=== PATIENT | male | born 1980 | race Caucasian/White ===

== ENCOUNTER 2016-07-06 12:00 | Inpatient (IN) | payer OTHER ==
[~2016-07-06] VITALS: Ht 177.8 cm; Wt 110.0 kg
[~2016-07-06 12:00] MED LIST: BUSP10 PO; FOLI1 PO; LEXA10TA PO; PROT40TA PO; SERO100T PO; TAB-TAB PO; THIA100T PO
[2016-07-06 12:06] VITALS: BP 153/86; PULSE 108; RESP 20; TEMP 98.3; O2SAT 96
[2016-07-06] MEDS ORDERED: SODIUM CHLOR 0.9% 1000 ML INJ 1,000 ML IV SCH (12:17)
--- NOTE | 2016-07-06 12:21 | PD ---
HPI Chief Complaint: Alcohol/Drug Intoxication Time Seen by Provider: 12:13 Travel History International Travel<30 days: No Contact w/Intl Traveler<30days: No Traveled to known affect area: No History of Present Illness HPI 35-year-old male complains of abdominal pain. Patient has history of EtOH abuse. Patient states that he drank about a gallon of vodka this morning. Patient states that he has abdominal pain for the past 2 days. Patient states the pain is sharp stabbing pain started around epigastric area with radiation to the back. Patient states that he has intermittent nausea vomiting since yesterday. Patient denies any headache. Patient denies any chest pain or shortness of breath. Patient denies any dysuria or frequency. Patient denies any fever chills. Patient states that he has history of pancreatitis in the past. On a scale of 1-10 the pain is a 9. PFSH Past Medical History Depression: Yes Diminished Hearing: No Pancreatitis: Yes Past Surgical History Appendectomy: Yes Social History Alcohol Use: Yes (DAILY) Tobacco Use: No Substance Use: No (DENIES) Allergies-Medications (Allergen,Severity, Reaction): Coded Allergies: No Known Allergies (Unverified , 11/29/15) Reported Meds & Prescriptions Reported Meds & Active Scripts Active No Active Prescriptions or Reported Medications Review of Systems General / Constitutional: No: Fever Eyes: No: Visual changes HENT: No: Headaches Cardiovascular: No: Chest Pain or Discomfort Respiratory: No: Shortness of Breath Gastrointestinal: Positive: Nausea, Vomiting, Abdominal Pain Genitourinary: No: Dysuria Musculoskeletal: No: Pain Skin: No Rash Neurologic: No: Weakness Psychiatric: No: Depression Endocrine: No: Polydipsia Hematologic/Lymphatic: No: Easy Bruising Physical Exam Narrative GENERAL: Well-nourished, well-developed patient. SKIN: Focused skin assessment warm/dry. HEAD: Normocephalic. EYES: No scleral icterus. No injection or drainage. NECK: Supple, trachea midline. No JVD or lymphadenopathy. CARDIOVASCULAR: Regular rate and rhythm without murmurs, gallops, or rubs. RESPIRATORY: Breath sounds equal bilaterally. No accessory muscle use. GASTROINTESTINAL: Abdomen soft, nondistended. Moderate tenderness on palpation epigastric area. No rebound tenderness. No mass. MUSCULOSKELETAL: No cyanosis, or edema. BACK: Nontender without obvious deformity. No CVA tenderness. Neurologic exam normal. Data Data Last Documented VS Vital Signs Date Time Temp Pulse Resp B/P Pulse Ox O2 Delivery O2 Flow Rate FiO2 07/06/16 12:06 98.3 108 20 153/86 96 Orders Complete Blood Count With Diff (07/06/16 12:17) Comprehensive Metabolic Panel (07/06/16 12:17) Lipase (07/06/16 12:17) Prothrombin Time / Inr (Pt) (07/06/16 12:17) Act Partial Throm Time (Ptt) (07/06/16 12:17) Urinalysis - C+S If Indicated (07/06/16 12:17) Iv Access Insert/Monitor (07/06/16 12:17) Ecg Monitoring (07/06/16:) Oximetry (07/06/16 12:17) Morphine Inj (Morphine Inj) (07/06/16 12:30) Ondansetron Inj (Zofran Inj) (07/06/16 12:30) Pantoprazole Inj (Protonix Inj) (07/06/16 12:30) Sodium Chlor 0.9% 1000 Ml Inj (Ns 1000 M (07/06/16 12:17) Thiamine Inj (Thiamine Inj) (07/06/16 12:30) Alcohol (Ethanol) (07/06/16 12:19) Labs Laboratory Tests Test 07/06/16 12:30 White Blood Count 8.5 TH/MM3 Red Blood Count 5.87 MIL/MM3 Hemoglobin 16.8 GM/DL Hematocrit 48.3 % Mean Corpuscular Volume 82.3 FL Mean Corpuscular Hemoglobin 28.6 PG Mean Corpuscular Hemoglobin 34.7 % Concent Red Cell Distribution Width 15.1 % Platelet Count 261 TH/MM3 Mean Platelet Volume 7.7 FL Neutrophils (%) (Auto) 35.9 % Lymphocytes (%) (Auto) 57.4 % Monocytes (%) (Auto) 5.8 % Eosinophils (%) (Auto) 0.3 % Basophils (%) (Auto) 0.6 % Neutrophils # (Auto) 3.1 TH/MM3 Lymphocytes # (Auto) 4.9 TH/MM3 Monocytes # (Auto) 0.5 TH/MM3 Eosinophils # (Auto) 0.0 TH/MM3 Basophils # (Auto) 0.0 TH/MM3 CBC Comment AUTO DIFF Prothrombin Time 10.6 SEC Prothromb Time International 1.0 RATIO Ratio Activated Partial 25.6 SEC Thromboplast Time Urine Color YELLOW Urine Turbidity CLEAR Urine pH 5.5 Urine Specific [place] 1.013 Urine Protein NEG mg/dL Urine Glucose (UA) NEG mg/dL Urine Ketones TRACE mg/dL Urine Occult Blood NEG Urine Nitrite NEG Urine Bilirubin NEG Urine Urobilinogen LESS THAN 2.0 MG/DL Urine Leukocyte Esterase NEG Urine WBC 1 /hpf Microscopic Urinalysis Comment CULT NOT INDICATED Sodium Level 142 MEQ/L Potassium Level 3.9 MEQ/L Chloride Level 104 MEQ/L Carbon Dioxide Level 22.4 MEQ/L Anion Gap 16 MEQ/L Blood Urea Nitrogen 15 MG/DL Creatinine 1.10 MG/DL Estimat Glomerular Filtration 77 ML/MIN Rate Random Glucose 116 MG/DL Calcium Level 8.8 MG/DL Total Bilirubin 0.3 MG/DL Aspartate Amino Transf 84 U/L (AST/SGOT) Alanine Aminotransferase 114 U/L (ALT/SGPT) Alkaline Phosphatase 87 U/L Total Protein 7.8 GM/DL Albumin 4.1 GM/DL Lipase 440 U/L Ethyl Alcohol Level 397 MG/DL [facility] Medical Decision Making Medical Screen Exam Complete: Yes Emergency Medical Condition: Yes Medical Record Reviewed: Yes Interpretation(s) 1347 PM. CBC within normal limit. CMP within normal limit. Glucose 116. AST 84. ALT 114. Lipase 440. Alcohol 397. UA negative. Differential Diagnosis Differential diagnosis including gastritis, PUD, pancreatitis, cholecystitis, colitis, UTI, pyelonephritis. Narrative Course 35-year-old male with epigastric abdominal pain, nausea vomiting. History of EtOH abuse. Normal saline solution 1 25 cc an hour. Morphine 2 mg IV. Zofran 4 mg IV. Protonix 40 mg IV. Thiamine 100 mg IV. Diagnosis Primary Impression: Acute pancreatitis Qualified Code: K85.20 - Alcohol-induced acute pancreatitis without infection or necrosis Additional Impression: Alcohol intoxication Qualified Code: F10.120 - Alcohol intoxication, uncomplicated Admitting Information Admitting Physician Requests: Observation Scripts No Active Prescriptions or Reported Meds Jayy Lehman MD July 06, 2016 12:21
[2016-07-06] MEDS ORDERED: MORPHINE SULFATE 4 MG/ML INJ IV PUSH ONE (12:30)
[2016-07-06] MEDS ORDERED: THIAMINE INJ 100 MG in SODIUM CHLORIDE 0.9% INJ 100 ML IV ONE (12:30)
[2016-07-06] MEDS ORDERED: ONDANSETRON HCL 4 MG/2 ML VIAL IVP ONE (12:30)
[2016-07-06] MEDS ORDERED: PANTOPRAZOLE SODIUM 40 MG VIAL IVP ONE (12:30)
[2016-07-06 12:49] LABS: AUTOMATED NEUTROPHIL # 3.1 TH/MM3 (1.8-7.7); BASOPHIL % 0.6 % (0.0-2.0); EOSINOPHIL % 0.3 % (0.0-4.0); HEMATOCRIT 48.3 % (39.0-51.0); LYMPH % 57.4 % (9.0-44.0); LYMPHOCYTE # 4.9 TH/MM3 (1.0-4.8); MEAN CELL VOLUME 82.3 FL (80.0-100.0); MEAN CORPUSCULAR HEMOGLOBIN 28.6 PG (27.0-34.0); MEAN CORPUSCULAR HGB CONC 34.7 % (32.0-36.0); MONO % 5.8 % (0.0-8.0); NEUT % 35.9 % (16.0-70.0); PLATELET COUNT 261 TH/MM3 (150-450); RED BLOOD COUNT 5.87 MIL/MM3 (4.50-5.90); RED CELL DISTRIBUTION WIDTH 15.1 % (11.6-17.2); WHITE BLOOD COUNT 8.5 TH/MM3 (4.0-11.0)
[2016-07-06 12:57] LABS: HEMO FLAGS AUTO DIFF
[2016-07-06 13:01] LABS: BLOOD, URINE NEG (NEG); COMMENT (UR) CULT NOT INDICATED; CULTURE IF INDICATED CULT NOT INDICATED; GLUCOSE,URINE NEG (NEG); KETONE, URINE TRACE mg/dL (NEG); NITRITE,URINE NEG (NEG); PH, URINE 5.5 (5.0-8.5); URINE COLOR YELLOW (YELLW/STRAW)
[2016-07-06 13:04] LABS: ALT (GPT) 114 U/L (12-78); ANION GAP 16 MEQ/L (5-15); AST (GOT) 84 U/L (15-37); BICARBONATE 22.4 MEQ/L (21.0-32.0); BLOOD UREA NITROGEN 15 MG/DL (7-18); CHLORIDE 104 MEQ/L (98-107); GLOMERULAR FILTRATION RATE 77 ML/MIN (>89); POTASSIUM 3.9 MEQ/L (3.5-5.1); SODIUM (NA) 142 MEQ/L (136-145)
[2016-07-06 13:05] LABS: APTT (PATIENT) 25.6 SEC (24.3-30.1); PROTHROMBIN TIME - PATIENT 10.6 SEC (9.8-11.6)
[2016-07-06 13:06] LABS: ALKALINE PHOSPHATASE 87 U/L (45-117); TOTAL BILIRUBIN ADULT 0.3 MG/DL (0.2-1.0)
[2016-07-06 13:36] LABS: SCAN/DIFF AUTO DIFF CONFIRMED
[2016-07-06 14:11] VITALS: O2SAT 97
[2016-07-06 14:12] VITALS: BP 143/82; PULSE 106; RESP 15; O2SAT 97
--- NOTE | 2016-07-06 14:23 | HHI.HP ---
HPI Service Family Medicine Primary Care Physician No Primary Care Physician Admission Diagnosis acute pancreatitis. Alcohol intoxication. Diagnoses: International Travel<30 Days: No Contact w/Intl Traveler<30days: No Known Affected Area: No History of Present Illness This is a 35-year-old male with past medical history significant for alcohol abuse and pancreatitis. He had recently been sober for a few months when 2 weeks ago his girlfriend left him and he started to binge drink once more. He has been drinking about a gallon of vodka every day for the last 2 weeks. For the last 2 days his stomach has been hurting and he has been drinking to the point of throwing up in order to help himself feel better. His parents saw him shaking this morning and more worried about them and called the ambulance. Prior to getting on the ambulance he had 2 or 3 more shots of vodka as well as a Valium to help with this shaking. He is currently complaining of severe abdominal pain and cannot sit still in the bed. It feels like a sharp stabbing pain in the center of the stomach and like somebody is punching him in the back repetitively. Last time he vomited was this morning. Last episode of pancreatitis occurred about 6 months ago prior to his sobriety, he has been going to and had been sober for several months prior to this relapse. Review of Systems Constitutional: COMPLAINS OF: Fatigue, Fever, Chills, Dizziness, Change in appetite (decreased), DENIES: Weight gain, Weight loss Eyes: COMPLAINS OF: Blurred vision, DENIES: Vision loss, Double Vision Ears, nose, mouth, throat: COMPLAINS OF: Hoarseness, DENIES: Tinnitus, Throat pain Respiratory: COMPLAINS OF: Cough, DENIES: Shortness of breath Cardiovascular: COMPLAINS OF: Chest pain Gastrointestinal: COMPLAINS OF: Abdominal pain, Nausea, Vomiting Genitourinary: DENIES: Urinary frequency, Urinary incontinence, Dysuria Musculoskeletal: COMPLAINS OF: Muscle aches, Joint Swelling, Back pain Integumentary: DENIES: Rash Hematologic/lymphatic: DENIES: Bruising Neurologic: COMPLAINS OF: Headache, Poor Balance, DENIES: Abnormal gait, Localized weakness, Seizures Psychiatric: COMPLAINS OF: Anxiety, Depression Past Family Social History Past Medical History Pancreatitis Alcohol abuse Past Surgical History appendectomy Reported Medications Reported Meds & Active Scripts Active No Active Prescriptions or Reported Medications Allergies: Coded Allergies: No Known Allergies (Unverified , 11/29/15) Family History noncontributory, adopted Social History Live in [place] with his parents 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 SKIN: No rashes, ecchymoses or lesions. Cool and dry. HEAD: Atraumatic. Normocephalic. No temporal or scalp tenderness. EYES: Pupils equal round and reactive. Extraocular motions intact. No scleral icterus. No injection or drainage. ENT: Nose without bleeding, purulent drainage or septal hematoma. Throat without erythema, tonsillar hypertrophy or exudate. Uvula midline. Airway patent. NECK: Trachea midline. No JVD or lymphadenopathy. Supple, nontender, no meningeal signs. CARDIOVASCULAR: Regular rate and rhythm without murmurs, gallops, or rubs. RESPIRATORY: Clear to auscultation. Breath sounds equal bilaterally. No wheezes , rales, or rhonchi. GASTROINTESTINAL: Abdomen soft, moderate tenderness to palpation in the epigastric region, nondistended. No rebound tenderness. No hepato-splenomegaly , or palpable masses. No guarding. MUSCULOSKELETAL: Extremities without clubbing, cyanosis, or edema. No joint tenderness, effusion, or edema noted. No calf tenderness. Negative Homans sign bilaterally. NEUROLOGICAL: Awake and alert. Cranial nerves II through XII grossly intact. Motor and sensory grossly within normal limits. Full range of motion. Normal speech. Laboratory Laboratory Tests Test 07/06/16 12:30 White Blood Count 8.5 Red Blood Count 5.87 Hemoglobin 16.8 Hematocrit 48.3 Mean Corpuscular Volume 82.3 Mean Corpuscular Hemoglobin 28.6 Mean Corpuscular Hemoglobin 34.7 Concent Red Cell Distribution Width 15.1 Platelet Count 261 Mean Platelet Volume 7.7 Neutrophils (%) (Auto) 35.9 Lymphocytes (%) (Auto) 57.4 Monocytes (%) (Auto) 5.8 Eosinophils (%) (Auto) 0.3 Basophils (%) (Auto) 0.6 Neutrophils # (Auto) 3.1 Lymphocytes # (Auto) 4.9 Monocytes # (Auto) 0.5 Eosinophils # (Auto) 0.0 Basophils # (Auto) 0.0 CBC Comment AUTO DIFF Differential Comment AUTO DIFF CONFIRMED Prothrombin Time 10.6 Prothromb Time International 1.0 Ratio Activated Partial 25.6 Thromboplast Time Urine Color YELLOW Urine Turbidity CLEAR Urine pH 5.5 Urine Specific [place] 1.013 Urine Protein NEG Urine Glucose (UA) NEG Urine Ketones TRACE Urine Occult Blood NEG Urine Nitrite NEG Urine Bilirubin NEG Urine Urobilinogen LESS THAN 2.0 Urine Leukocyte Esterase NEG Urine WBC 1 Microscopic Urinalysis Comment CULT NOT INDICATED Sodium Level 142 Potassium Level 3.9 Chloride Level 104 Carbon Dioxide Level 22.4 Anion Gap 16 Blood Urea Nitrogen 15 Creatinine 1.10 Estimat Glomerular Filtration 77 Rate Random Glucose 116 Calcium Level 8.8 Total Bilirubin 0.3 Aspartate Amino Transf 84 (AST/SGOT) Alanine Aminotransferase 114 (ALT/SGPT) Alkaline Phosphatase 87 Total Protein 7.8 Albumin 4.1 Lipase 440 Ethyl Alcohol Level 397 Result Diagram: 07/06/16 1230 07/06/16 1230 Imaging Last Impressions Abdomen X-Ray 07/06/16 0000 Signed Impressions: Service Date/Time: , July 06, 2016 15:02 - CONCLUSION: 1. No free air identified. Benign-appearing KUB. Sky Carlson MD Assessment and Plan Assessment and Plan This a 35-year-old male with past medical history significant for pancreatitis and alcohol abuse, being admitted for alcohol withdrawal and pancreatitis. Code Status Full code Discussed Condition With wdw: Dr. Torres Problem List: (1) Alcohol withdrawal syndrome Status: Acute Plan: Patient reports relapse of his alcoholism. He has been drinking for the last 2 weeks gallon a day of vodka. Has been having worsening abdominal pain during this last 2 days which is greatly decreased his alcohol intake. He reports that he has had delirium tremens in the past and he is worried about going into that once more. * Admitted * CIWA protocol * Rally pack IV * IV fluids at 125 MLS per hour * CBC, BMP ordered for the a.m. (2) Acute pancreatitis Status: Acute Plan: Patient is having severe abdominal pain. Lipase is elevated at 440. History of pancreatitis. Has had a relapse of his alcohol abuse, and cause of abdominal pain believed to be due to pancreatitis. * Nothing by mouth * Ultrasound of the progress ordered: Results pending * Zofran 4 mg IV every 6 hours when necessary nausea or vomiting * Protonix 40 mg IV daily * Dilaudid 1 mg IV every 3 hours * Lipase ordered: Results pending (3) Nutrition, metabolism, and development symptoms Status: Acute Plan: Nothing by mouth IV fluids maintenance Vitals every 4 hours Neuro checks every 4 Bed rest with bathroom privileges Seizure precautions DVT prophylaxis with heparin and SCDs Monitor electrolytes replace accordingly CODE STATUS: Full code Disposition: Pending improvement of pancreatitis and completion of alcohol withdrawal Physician Certification 2 Midnight Certification Type: Admission for Inpatient Services Order for Inpatient Services The services are ordered in accordance with Medicare regulations or non- Medicare payer requirements, as applicable. In the case of services not specified as inpatient-only, they are appropriately provided as inpatient services in accordance with the 2-midnight benchmark. Estimated LOS (days): 2 days is the estimated time the patient will need to remain in the hospital, assuming treatment plan goals are met and no additional complications. Post-Hospital Plan: Home Problem Qualifiers (1) Acute pancreatitis: Qualified Code: K85.20 - Alcohol-induced acute pancreatitis without infection or necrosis Sam Coates MD R2 July 06, 2016 14:23
[2016-07-06] MEDS ORDERED: LORazepam 2 MG/ML VIAL IV PUSH PRN ×2 (14:30)
[2016-07-06] MEDS ORDERED: HALOPERIDOL LACTATE 5 MG/ML AMP IM PRN (14:30)
[2016-07-06] MEDS ORDERED: FLUMAZENIL 0.5 MG/5 ML VIAL IV PUSH PRN (14:30)
[2016-07-06] MEDS ORDERED: cloNIDine HCL 0.1 MG TAB PO PRN (14:30)
--- NOTE | 2016-07-06 15:14 | RADRPT ---
EXAM DATE/TIME: 07/06/2016 15:02 [facility] COMPARISON: No previous studies available for comparison. INDICATIONS : Abdominal pain for 2 days; nausea and vomiting. MEDICAL HISTORY : Pancreatitis. SURGICAL HISTORY : Appendectomy. ENCOUNTER: Initial ACUITY: 2 days PAIN SCORE: 9/10 LOCATION: Epigastric. FINDINGS: Supine and upright views of the abdomen were performed. The abdominal bowel gas pattern is normal. No air fluid levels are seen. No abnormal masses, calcifications, or organomegaly is seen. The visu alized lower lungs are clear. No evidence of free intraperitoneal gas. The osseous structures are u nremarkable. CONCLUSION: 1. No free air identified. Benign-appearing KUB. Sky Carlson MD on July 06, 2016 at 15:11 Board Certified Radiologist. This report was verified electronically.
[2016-07-06] MEDS: HEPARIN SODIUM - SQ 10,000 UNITS/ML VIAL SQ SCH ×2 (15:21→23:18)
[2016-07-06] MEDS: MULTIVITAMIN INJ 10 ML, FOLIC ACID INJ 1 MG in SODIUM CHLORID 0.9% 500 ML INJ 500 ML IV SCH (15:46)
[2016-07-06] MEDS: SODIUM CHLOR 0.9% 1000 ML INJ 1,000 ML IV SCH ×2 (15:46→23:00)
[2016-07-06] MEDS: LORazepam 2 MG/ML VIAL IV PUSH PRN ×2 (15:47→20:03)
[2016-07-06] MEDS: HYDROmorphone HCL PF 1 MG/ML VIAL IV PRN ×2 (15:47→18:52)
[2016-07-06] MEDS: ONDANSETRON HCL 4 MG/2 ML VIAL IV PRN ×2 (17:31→19:30)
[2016-07-06 17:54] VITALS: BP 151/90; PULSE 99; RESP 20; TEMP 98.2; O2SAT 96
[2016-07-06 19:46] VITALS: BP 145/84; PULSE 104; RESP 20; TEMP 98; O2SAT 94
[2016-07-06] MEDS: SODIUM CHLORIDE 0.9% FLUSH 10 ML FLUSH IV FLUSH SCH (19:49)
[2016-07-06 20:00] VITALS: O2SAT 94
--- NOTE | 2016-07-06 20:04 | RADRPT ---
EXAM DATE/TIME: 07/06/2016 18:44 [facility] COMPARISON: No previous studies available for comparison. INDICATIONS : Pancreatitis. MEDICAL HISTORY : Pancreatitis. ETOH abuse. Depression. Anxiety. Substance use. Nausea. Vomiting. SURGICAL HISTORY : Appendectomy. Left ACL repair. ENCOUNTER: Initial ACUITY: 1 day PAIN SCORE: 8/10 LOCATION: Right upper quadrant MEASUREMENTS: LIVER: 16.9 cm length COMMON DUCT: Non-visualized RIGHT KIDNEY: 12.0 x 5.6 x 5.3 cm FINDINGS: LIVER: The liver demonstrates increased echogenicity without focal lesion or ductal dilatation. COMMON DUCT: The common bile duct is not seen. GALLBLADDER: Contains no stones, demonstrates no wall thickening or pericholecystic fluid. PANCREAS: The pancreas is somewhat ill-defined. CONCLUSION: 1. Fat infiltration of the liver. 2. The pancreas there is ill-defined. This can be seen with pancreatitis although is nonspecific. Pasha Daniel MD on July 06, 2016 at 19:54 Board Certified Radiologist. This report was verified electronically.
[2016-07-07] VITALS (7 sets, daily range): BP systolic 133–162; BP diastolic 79–93; PULSE 90–104; RESP 18–21; TEMP 97.7–98.7; O2SAT 95–98
[2016-07-07] MEDS: HYDROmorphone HCL PF 1 MG/ML VIAL IV PRN ×5 (00:03→20:20)
[2016-07-07] MEDS: SODIUM CHLORIDE 0.9% FLUSH 10 ML FLUSH IV FLUSH PRN (00:03)
[2016-07-07] MEDS: ONDANSETRON HCL 4 MG/2 ML VIAL IV PRN (01:22)
[2016-07-07] MEDS: LORazepam 2 MG/ML VIAL IV PUSH PRN ×5 (01:23→22:10)
[2016-07-07] MEDS: SODIUM CHLOR 0.9% 1000 ML INJ 1,000 ML IV SCH ×4 (06:28→22:51)
[2016-07-07 07:54] LABS: ALKALINE PHOSPHATASE 73 U/L (45-117); TOTAL BILIRUBIN ADULT 0.7 MG/DL (0.2-1.0)
[2016-07-07 08:03] LABS: ALT (GPT) 94 U/L (12-78); ANION GAP 11 MEQ/L (5-15); AST (GOT) 94 U/L (15-37); BICARBONATE 22.9 MEQ/L (21.0-32.0); BLOOD UREA NITROGEN 11 MG/DL (7-18); CHLORIDE 105 MEQ/L (98-107); GLOMERULAR FILTRATION RATE 87 ML/MIN (>89); MAGNESIUM 1.7 MG/DL (1.5-2.5); SODIUM (NA) 139 MEQ/L (136-145)
[2016-07-07 08:40] LABS: POTASSIUM 4.6 MEQ/L (3.5-5.1)
[2016-07-07] MEDS: SODIUM CHLORIDE 0.9% FLUSH 10 ML FLUSH IV FLUSH SCH ×2 (09:08→20:20)
[2016-07-07] MEDS: HEPARIN SODIUM - SQ 10,000 UNITS/ML VIAL SQ SCH ×2 (09:09→16:48)
[2016-07-07] MEDS: PANTOPRAZOLE SODIUM 40 MG VIAL IV PUSH SCH (09:09)
[2016-07-07] MEDS: chlordiazePOXIDE 25 MG CAP PO SCH ×2 (09:52→12:36)
[2016-07-07] MEDS: LORazepam 1 MG TAB PO PRN (09:52)
--- NOTE | 2016-07-07 10:10 | HHI.HP ---
[facility] Service Family Medicine Primary Care Physician No Primary Care Physician Admission Diagnosis acute pancreatitis. Alcohol intoxication. Diagnoses: (1) Alcohol withdrawal syndrome Diagnosis: Principal (2) Acute pancreatitis Diagnosis: Principal (3) Nutrition, metabolism, and development symptoms Diagnosis: Principal International Travel<30 Days: No Contact w/Intl Traveler<30days: No Known Affected Area: No History of Present Illness Mr Pickens is a 35-year-old male with past medical history significant for alcohol abuse and pancreatitis. He had recently been sober for a few months when 2 weeks ago his girlfriend left him and he started to binge drink once more. He has been drinking about a gallon of vodka every day for the last 2 weeks. For the last 2 days before admission his stomach has been hurting and he has been drinking to the point of throwing up in order to help himself feel better. His parents saw him shaking and were worried about him and called the ambulance. Prior to getting on the ambulance he had 2 or 3 more shots of vodka as well as a Valium to help with this shaking. He was currently complaining of severe abdominal pain and could not sit still in the bed. He felt like a sharp stabbing pain in the center of the stomach and like somebody was punching him in the back repetitively. Last time he vomited was yesterday morning. Last episode of pancreatitis occurred about 6 months ago prior to his sobriety, he has been going to and had been sober for several months prior to this relapse. This am he reports having visual hallucinations where he is seeing "shadow people"among other things. He is tremulous. He has a history of seizures with alcohol withdrawal and states it often takes him days to improve. After leaving the hospital he wants to go to a "sober house" and quit drinking. His abdominal pain is improved though still present. Review of Systems Other Constitutional: COMPLAINS OF: Fatigue, Fever, Chills, Dizziness, Change in appetite (decreased), DENIES: Weight gain, Weight loss Eyes: COMPLAINS OF: Blurred vision, DENIES: Vision loss, Double Vision Ears, nose, mouth, throat: COMPLAINS OF: Hoarseness, DENIES: Tinnitus, Throat pain Respiratory: COMPLAINS OF: Cough, DENIES: Shortness of breath Cardiovascular: COMPLAINS OF: Chest pain Gastrointestinal: COMPLAINS OF: Abdominal pain, Nausea, Vomiting Genitourinary: DENIES: Urinary frequency, Urinary incontinence, Dysuria Musculoskeletal: COMPLAINS OF: Muscle aches, Joint Swelling, Back pain Integumentary: DENIES: Rash Hematologic/lymphatic: DENIES: Bruising Neurologic: COMPLAINS OF: Headache, Poor Balance, DENIES: Abnormal gait, Localized weakness, Seizures Psychiatric: COMPLAINS OF: Anxiety, Depression Past Family Social History Past Medical History Pancreatitis Alcohol abuse Past Surgical History appendectomy Allergies: Coded Allergies: No Known Allergies (Unverified , 11/29/15) Family History noncontributory, adopted Social History Lives in [place] with his parents Owns three companies Has been going to AA Smoke 3 cigarretes in a week period Drinks a gallon of vodka a day Smokes marijuana Physical Exam Vital Signs Vital Signs Date Time Temp Pulse Resp B/P Pulse Ox O2 Delivery O2 Flow Rate FiO2 07/07/16 07:47 96 Nasal Cannula 2.00 07/07/16 07:44 98.7 104 18 147/89 96 07/07/16 07:08 18 07/07/16 00:00 98.0 104 20 133/79 96 07/06/16 20:00 94 Nasal Cannula 2.00 07/06/16 19:46 98.0 104 20 145/84 94 07/06/16 17:54 98.2 99 20 151/90 96 07/06/16 14:12 106 15 143/82 97 Room Air 07/06/16 14:11 97 Room Air 07/06/16 12:06 98.3 108 20 153/86 96 Physical Exam GENERAL: This is a well-nourished, well-developed patient, discussing his visual hallucinations with some hand trembling this am SKIN: No rashes, ecchymoses or lesions. Cool and dry. HEAD: Atraumatic. Normocephalic. EYES: Pupils equal round and reactive. Extraocular motions intact. No scleral icterus. No injection or drainage. ENT: Nose without bleeding, purulent drainage or septal hematoma. Uvula midline. Airway patent. NECK: Trachea midline. No JVD or lymphadenopathy. Supple, nontender, no meningeal signs. CARDIOVASCULAR: Regular rate and rhythm without murmurs, gallops, or rubs. RESPIRATORY: Clear to auscultation. Breath sounds equal bilaterally. No wheezes , rales, or rhonchi. GASTROINTESTINAL: Abdomen soft, moderate tenderness to palpation in the epigastric region, nondistended. No rebound tenderness. No hepato-splenomegaly , or palpable masses. No guarding. MUSCULOSKELETAL: Extremities without clubbing, cyanosis, or edema. No joint tenderness, effusion, or edema noted. No calf tenderness. Negative Homans sign bilaterally. NEUROLOGICAL: Awake and alert. Cranial nerves II through XII grossly intact. Motor and sensory grossly within normal limits. Full range of motion. Normal speech. Laboratory Laboratory Tests Test 07/06/16 07/07/16 12:30 06:30 White Blood Count 8.5 Red Blood Count 5.87 Hemoglobin 16.8 Hematocrit 48.3 Mean Corpuscular Volume 82.3 Mean Corpuscular Hemoglobin 28.6 Mean Corpuscular Hemoglobin 34.7 Concent Red Cell Distribution Width 15.1 Platelet Count 261 Mean Platelet Volume 7.7 Neutrophils (%) (Auto) 35.9 Lymphocytes (%) (Auto) 57.4 Monocytes (%) (Auto) 5.8 Eosinophils (%) (Auto) 0.3 Basophils (%) (Auto) 0.6 Neutrophils # (Auto) 3.1 Lymphocytes # (Auto) 4.9 Monocytes # (Auto) 0.5 Eosinophils # (Auto) 0.0 Basophils # (Auto) 0.0 CBC Comment AUTO DIFF Differential Comment AUTO DIFF CONFIRMED Prothrombin Time 10.6 Prothromb Time International 1.0 Ratio Activated Partial 25.6 Thromboplast Time Urine Color YELLOW Urine Turbidity CLEAR Urine pH 5.5 Urine Specific [place] 1.013 Urine Protein NEG Urine Glucose (UA) NEG Urine Ketones TRACE Urine Occult Blood NEG Urine Nitrite NEG Urine Bilirubin NEG Urine Urobilinogen LESS THAN 2.0 Urine Leukocyte Esterase NEG Urine WBC 1 Microscopic Urinalysis Comment CULT NOT INDICATED Sodium Level 142 139 Potassium Level 3.9 4.6 Chloride Level 104 105 Carbon Dioxide Level 22.4 22.9 Anion Gap 16 11 Blood Urea Nitrogen 15 11 Creatinine 1.10 0.99 Estimat Glomerular Filtration 77 87 Rate Random Glucose 116 78 Calcium Level 8.8 8.3 Total Bilirubin 0.3 0.7 Aspartate Amino Transf 84 94 (AST/SGOT) Alanine Aminotransferase 114 94 (ALT/SGPT) Alkaline Phosphatase 87 73 Total Protein 7.8 7.0 Albumin 4.1 3.5 Lipase 440 252 Ethyl Alcohol Level 397 Phosphorus Level 2.5 Magnesium Level 1.7 Result Diagram: 07/06/16 1230 07/07/16 0630 Imaging Last Impressions Abdomen X-Ray 07/06/16 0000 Signed Impressions: Service Date/Time: July 15:02 - CONCLUSION: 1. No free air identified. Benign-appearing KUB. Sky Carlson MD Assessment and Plan Assessment and Plan This a 35-year-old male with past medical history significant for pancreatitis and alcohol abuse, being admitted for alcohol withdrawal and pancreatitis. He has serious withdrawal sxs so he will need to stay in the hospital probably for days Problem List: (1) Alcohol withdrawal syndrome Status: Acute Plan: Patient reports relapse of his alcoholism. He has been drinking for the last 2 weeks gallon a day of vodka. Has been having worsening abdominal pain during this last 2 days which is greatly decreased his alcohol intake. He reports that he has had delirium tremens in the past and he is going into that once more. * Admitted * CIWA protocol * librium taper. with his size plus the gallon a day, he will start on 50 mg TID of librium * Rally pack IV * IV fluids at 125 MLS per hour, will increase with pancreatitis * CBC, BMP ordered for the a.m. (2) Acute pancreatitis Status: Acute Plan: Patient was having severe abdominal pain. Lipase was elevated at 440. History of pancreatitis. Has had a relapse of his alcohol abuse, and cause of abdominal pain believed to be due to pancreatitis. * Nothing by mouth initially, now can try clear liquids as he is improving * Ultrasound of the pancreas ordered: Results pending * Zofran 4 mg IV every 6 hours when necessary nausea or vomiting * Protonix 40 mg IV daily * Dilaudid 1 mg IV every 3 hours * Lipase ordered: Results pending (3) Nutrition, metabolism, and development symptoms Status: Acute Plan: Clear liquids, consider advancing if he does well with his pain IV fluids for pancreatitis Vitals every 4 hours Neuro checks every 4 Bed rest with bathroom privileges Seizure precautions DVT prophylaxis with heparin and SCDs Monitor electrolytes replace accordingly CODE STATUS: Full code Disposition: Pending improvement of pancreatitis and completion of alcohol withdrawal Physician Certification 2 Midnight Certification Type: Admission for Inpatient Services Order for Inpatient Services The services are ordered in accordance with Medicare regulations or non- Medicare payer requirements, as applicable. In the case of services not specified as inpatient-only, they are appropriately provided as inpatient services in accordance with the 2-midnight benchmark. Estimated LOS (days): 3 3 days is the estimated time the patient will need to remain in the hospital, assuming treatment plan goals are met and no additional complications. Post-Hospital Plan: Not yet determined Problem Qualifiers (1) Alcohol withdrawal syndrome: Qualified Code: F10.232 - Alcohol withdrawal syndrome, with perceptual disturbance (2) Acute pancreatitis: Qualified Code: K85.20 - Alcohol-induced acute pancreatitis without infection or necrosis Katrin Torres MD July 07, 2016 10:10
[2016-07-07 12:39] LABS: AUTOMATED NEUTROPHIL # 5.6 TH/MM3 (1.8-7.7); BASOPHIL % 0.3 % (0.0-2.0); EOSINOPHIL % 0.5 % (0.0-4.0); HEMATOCRIT 42.6 % (39.0-51.0); HEMO FLAGS DIFF FINAL; LYMPH % 28.6 % (9.0-44.0); LYMPHOCYTE # 2.6 TH/MM3 (1.0-4.8); MEAN CELL VOLUME 83.2 FL (80.0-100.0); MEAN CORPUSCULAR HEMOGLOBIN 28.5 PG (27.0-34.0); MEAN CORPUSCULAR HGB CONC 34.3 % (32.0-36.0); MONO % 8.2 % (0.0-8.0); NEUT % 62.4 % (16.0-70.0); PLATELET COUNT 191 TH/MM3 (150-450); RED BLOOD COUNT 5.13 MIL/MM3 (4.50-5.90); RED CELL DISTRIBUTION WIDTH 15.1 % (11.6-17.2)
[2016-07-07] MEDS: MULTIVITAMIN INJ 10 ML, FOLIC ACID INJ 1 MG in SODIUM CHLORID 0.9% 500 ML INJ 500 ML IV SCH (14:50)
[2016-07-07] MEDS: THIAMINE INJ 100 MG in SODIUM CHLORIDE 0.9% INJ 100 ML IV SCH (14:50)
[2016-07-08] MEDS: HEPARIN SODIUM - SQ 10,000 UNITS/ML VIAL SQ SCH ×2 (00:05→08:29)
[2016-07-08] MEDS: HYDROmorphone HCL PF 1 MG/ML VIAL IV PRN ×6 (00:05→22:55)
[2016-07-08 01:06] VITALS: BP 141/91; PULSE 83; RESP 21; TEMP 98.4; O2SAT 100
[2016-07-08] MEDS: SODIUM CHLOR 0.9% 1000 ML INJ 1,000 ML IV SCH ×5 (03:51→22:55)
[2016-07-08 04:34] LABS: AUTOMATED NEUTROPHIL # 2.9 TH/MM3 (1.8-7.7); BASOPHIL % 0.4 % (0.0-2.0); EOSINOPHIL # 0.1 TH/MM3 (0-0.4); EOSINOPHIL % 2.2 % (0.0-4.0); HEMATOCRIT 39.8 % (39.0-51.0); HEMO FLAGS DIFF FINAL; LYMPH % 40.4 % (9.0-44.0); LYMPHOCYTE # 2.4 TH/MM3 (1.0-4.8); MEAN CELL VOLUME 82.2 FL (80.0-100.0); MEAN CORPUSCULAR HEMOGLOBIN 29.2 PG (27.0-34.0); MEAN CORPUSCULAR HGB CONC 35.5 % (32.0-36.0); MONO % 8.8 % (0.0-8.0); NEUT % 48.2 % (16.0-70.0); PLATELET COUNT 170 TH/MM3 (150-450); RED BLOOD COUNT 4.85 MIL/MM3 (4.50-5.90); RED CELL DISTRIBUTION WIDTH 14.8 % (11.6-17.2)
[2016-07-08 04:58] LABS: BICARBONATE 25.1 MEQ/L (21.0-32.0); POTASSIUM 3.5 MEQ/L (3.5-5.1)
[2016-07-08] MEDS: LORazepam 2 MG/ML VIAL IV PUSH PRN ×4 (05:08→17:28)
[2016-07-08 05:56] VITALS: BP 135/79; PULSE 86; RESP 18; TEMP 98.4; O2SAT 93
[2016-07-08] MEDS: chlordiazePOXIDE 25 MG CAP PO SCH ×2 (08:28→19:59)
[2016-07-08] MEDS: SODIUM CHLORIDE 0.9% FLUSH 10 ML FLUSH IV FLUSH SCH ×2 (08:29→19:59)
[2016-07-08] MEDS: PANTOPRAZOLE SODIUM 40 MG VIAL IV PUSH SCH (08:29)
[2016-07-08] MEDS: ONDANSETRON HCL 4 MG/2 ML VIAL IV PRN ×3 (10:27→23:05)
--- NOTE | 2016-07-08 13:32 | HHI.FPPN ---
Subjective Remarks Patient was seen and examined this morning. He states he is still in active withdrawal, noting that his withdrawals are usually intense and that he continues to have auditory and visual hallucinations. He still has tremors. Last ago to inpatient rehabilitation facility either [facility] or [place] directly upon discharge. He is requesting diet advancement as well as B12 supplementation. He does also note that the Librium definitely improved his symptoms though the symptoms are still severe. (Chen Celis MD R1) Objective Vitals Vital Signs Date Time Temp Pulse Resp B/P Pulse Ox O2 Delivery O2 Flow Rate FiO2 07/08/16 09:00 16 07/08/16 05:56 98.4 86 18 135/79 93 07/08/16 01:06 98.4 83 21 141/91 100 07/07/16 20:31 98.4 90 21 140/93 98 07/07/16 19:25 98 Nasal Cannula 6.00 07/07/16 17:44 96 Nasal Cannula 2.00 I/O 07/07/16 07/07/16 07/07/16 07/08/16 07/08/16 07/08/16 07:00 15:00 23:00 07:00 15:00 23:00 Intake Total 320 ml 1080 ml Output Total 1000 ml 720 ml Balance -680 ml 360 ml Intake Oral 320 ml 1080 ml Output Urine Total 1000 ml 720 ml (Chen Celis MD R1) Result Diagram: 07/08/16 0415 07/08/16 0415 Imaging Last Impressions Pancreas Ultrasound 07/06/16 0000 Signed Impressions: Service Date/Time: July 18:44 - CONCLUSION: 1. Fat infiltration of the liver. 2. The pancreas there is ill-defined. This can be seen with pancreatitis although is nonspecific. Pasha Daniel MD Abdomen X-Ray 07/06/16 0000 Signed Impressions: Service Date/Time: July 15:02 - CONCLUSION: 1. No free air identified. Benign-appearing KUB. Sky Carlson MD Objective Remarks GENERAL: Patient is a well-nourished male lying in bed. He is anxious and tremulous. SKIN: Warm and dry. Multiple tattoos on the back and upper extremities HEAD: Atraumatic. Normocephalic. EYES: Pupils equal and round. No scleral icterus. No injection or drainage. ENT: No nasal bleeding or discharge. Mucous membranes pink and moist. NECK: Trachea midline. No JVD. CARDIOVASCULAR: Regular rate and rhythm, tachycardic without murmurs RESPIRATORY: No accessory muscle use. Clear to auscultation. Breath sounds equal bilaterally. GASTROINTESTINAL: Abdomen soft, tender to palpation in epigastric area, nondistended. Hepatic and splenic margins not palpable. MUSCULOSKELETAL: Extremities without clubbing, cyanosis, or edema. No obvious deformities. NEUROLOGICAL: Awake and alert. No obvious cranial nerve deficits. Motor grossly within normal limits. Grossly normal strength. Normal speech. PSYCHIATRIC: Appropriate mood and affect; insight and judgment normal. Does endorse auditory and visual hallucinations. Medications and IVs Inpatient Medications Chlordiazepoxide (Librium) 50 mg Taper BID PO Last administered on 07/08/16 08: 28; Start 07/08/16 at 09:00; Stop 07/14/16 at 08:59 Clonidine (Catapres) 0.1 mg Q6H PRN PO SEE LABEL COMMENTS; Start 07/06/16 at 14: 30 Flumazenil (Romazicon Inj) 0.2 mg Q1M PRN IV PUSH SEE LABEL COMMENTS; Start 07/06/16 at 14:30 Haloperidol Lactate (Haldol Inj) 2 mg Q15M PRN IM SEE LABEL COMMENTS; Start 07/06/16 at 14:30 Heparin Sodium (Porcine) 5000 units 5,000 units Q8H SQ Last administered on 07/08 08:29; Start 07/06/16 at 16:00 Hydromorphone HCl (Dilaudid Pf Inj) 1 mg Q3H PRN IV PAIN SCALE 1 TO 10 Last administered on 07/08/16 12:36; Start 07/06/16 at 14:30 Lorazepam (Ativan Inj) 2 mg Q15M PRN IV PUSH CIWA > 20; Start 07/06/16 at 14:30 Lorazepam (Ativan) 2 mg Q2H PRN PO CIWA 11-14; Start 07/06/16 at 14:30 Morphine Sulfate (Morphine Inj) 2 mg ONCE ONCE IV PUSH Last administered on 12:38; Start 07/06/16 at 12:30; Stop 07/06/16 at 12:31; Status DC Multivitamins 10 ml/Folic Acid 1 mg/Sodium Chloride 510.2 ml @ 125 mls/hr Q24H IV Last administered on 07/07/16 14:50; Start 07/06/16 at 16:00; Stop 07/11/16 at 15:59 Ondansetron HCl (Zofran Inj) 4 mg Q6H PRN IV NAUSEA OR VOMITING Last administered on 07/08/16 10:27; Start 07/06/16 at 14:30 Pantoprazole Sodium (Protonix Inj) 40 mg Q24H IV PUSH Last administered on 08:29; Start 07/07/16 at 09:00 Sodium Chloride (NS 1000 ml Inj) 1,000 ml @ 200 mls/hr Q5H IV Last administered on 07/06/16 15:46; Start 07/06/16 at 15:00 Sodium Chloride (NS Flush) 2 ml UNSCH PRN IV FLUSH FLUSH AFTER USING IV ACCESS Last administered on 07/07/16 00:03; Start 07/06/16 at 14:30 Sodium Chloride 2 ml 2 ml BID IV FLUSH Last administered on 07/08/16 08:29; Start 07/06/16 at 21:00 Thiamine HCl/ Sodium Chloride (Thiamine Inj/NS Inj) 101 ml @ 100 mls/hr Q24H IV Last administered on 07/07/16 14:50; Start 07/07/16 at 13:00; Stop 07/09/16 at 12:59 (Chen Celis MD R1) Urinary Catheter: No (Chen Celis MD R1) Vascular Central Line Catheter: No (Chen Celis MD R1) A/P Assessment and Plan This a 35-year-old male with past medical history significant for pancreatitis and alcohol abuse, being admitted for alcohol withdrawal and pancreatitis. He has serious withdrawal sxs so he will need to stay in the hospital probably for days Discharge Planning Unclear. Likely require full detox from alcohol, possibly to take up to a week. (Chen Celis MD R1) Attending Attestation Patient seen and examined. Case reviewed and discussed with the resident team. Agree with plan of care as discussed with me and documented in the resident note. (Katrin Torres MD) Problem List: (1) Alcohol withdrawal syndrome Status: Acute Plan: Continue management as below. Hospital Course: Patient reports relapse of his alcoholism. He has been drinking for the last 2 weeks gallon a day of vodka. Has been having worsening abdominal pain during this last 2 days which is greatly decreased his alcohol intake. He reports that he has had delirium tremens in the past and he is going into that once more. * Admitted to observation on 07/06, changed to inpatient 07/08 * [facility] protocol * Librium taper. With his size plus the gallon a day, he was started on 50 mg TID of librium, taper to 50 mg BID X one day, 25 mg BID x 2 days, then 25 mg daily. May change as needed * Rally pack IV * IV fluids at 125 MLS per hour, titrate as needed but IVF management needs to be aggressive with pancreatitis * CBC, BMP monitoring (2) Acute pancreatitis Status: Acute Plan: Abdominal pain has significantly improved. We'll advance diet as tolerated starting with full liquids. Once tolerating solids emphasize low-fat, high protein, nutrient dense with foods, vegetables, whole grains, low-fat dairy , etc. Hospital course: Patient was having severe abdominal pain on admission. Lipase was elevated at 440, and this has resolved to normal range. History of pancreatitis. Has had a relapse of his alcohol abuse, and cause of abdominal pain believed to be due to pancreatitis. * Nothing by mouth initially, advance diet as tolerated * Ultrasound of the pancreas ordered: showing some evidence of pancreatitis but no gallstones * Zofran 4 mg IV every 6 hours when necessary nausea or vomiting * Protonix 40 mg IV daily * Dilaudid 1 mg IV every 3 hours (3) Nutrition, metabolism, and development symptoms Status: Acute Plan: Fluids: tolerating PO, NS @ 200ml/hr, may decrease as needed Electrolytes: monitor and replete as needed Nutrition: Full liquids, advance as tolerated with low fat, high protein, whole grain rich diet DVT Prophylaxis: Lovenox 40mg subQ q24hr GI Prophylaxis: Not indicated Neuro checks every 4hr OOB with assistance Seizure precautions (Chen Celis MD R1) Problem Qualifiers (1) Alcohol withdrawal syndrome: Qualified Code: F10.232 - Alcohol withdrawal syndrome, with perceptual disturbance (2) Acute pancreatitis: Qualified Code: K85.20 - Alcohol-induced acute pancreatitis without infection or necrosis Chen Celis MD R1 July 08, 2016 13:32 Katrin Torres MD July 09, 2016 10:41
[2016-07-08] MEDS: THIAMINE INJ 100 MG in SODIUM CHLORIDE 0.9% INJ 100 ML IV SCH (13:37)
[2016-07-08] MEDS: MULTIVITAMIN INJ 10 ML, FOLIC ACID INJ 1 MG in SODIUM CHLORID 0.9% 500 ML INJ 500 ML IV SCH (13:37)
[2016-07-08] MEDS: ENOXAPARIN SODIUM 40 MG/0.4 ML SYRINGE SQ SCH (15:00)
[2016-07-08 17:42] VITALS: BP 135/80
[2016-07-08 19:25] VITALS: BP 135/75; PULSE 81; RESP 20; TEMP 98.2; O2SAT 97
[2016-07-08] MEDS: LORazepam 1 MG TAB PO PRN (19:47)
[2016-07-08 20:00] VITALS: BP 132/80; PULSE 90; RESP 20; TEMP 97.3; O2SAT 95
[2016-07-08] MEDS: LORazepam 2 MG TAB PO PRN (22:54)
[2016-07-08] MEDS: SODIUM CHLORIDE 0.9% FLUSH 10 ML FLUSH IV FLUSH PRN (22:55)
[2016-07-09] MEDS: LORazepam 2 MG TAB PO PRN ×4 (00:55→22:45)
[2016-07-09 04:00] VITALS: BP 130/86; PULSE 82; RESP 18; TEMP 97.3; O2SAT 95
[2016-07-09 04:22] LABS: BICARBONATE 27.2 MEQ/L (21.0-32.0); POTASSIUM 3.7 MEQ/L (3.5-5.1)
[2016-07-09] MEDS: SODIUM CHLOR 0.9% 1000 ML INJ 1,000 ML IV SCH ×4 (05:25→20:46)
[2016-07-09] MEDS: HYDROmorphone HCL PF 1 MG/ML VIAL IV PRN ×2 (05:26→08:32)
[2016-07-09] MEDS: ONDANSETRON HCL 4 MG/2 ML VIAL IV PRN ×3 (05:34→20:46)
[2016-07-09 07:00] VITALS: BP 134/100; PULSE 92; RESP 18; TEMP 97.6; O2SAT 95
[2016-07-09] MEDS: chlordiazePOXIDE 25 MG CAP PO SCH ×3 (08:04→19:43)
[2016-07-09] MEDS: PANTOPRAZOLE SODIUM 40 MG VIAL IV PUSH SCH (08:05)
[2016-07-09] MEDS: SODIUM CHLORIDE 0.9% FLUSH 10 ML FLUSH IV FLUSH SCH ×2 (08:05→19:42)
[2016-07-09] MEDS: LORazepam 2 MG/ML VIAL IV PUSH PRN (09:38)
[2016-07-09] MEDS ORDERED: ACETAMINOPHEN/HYDROcodone 325 MG/5 MG TAB PO PRN (10:30)
--- NOTE | 2016-07-09 10:40 | HHI.FPPN ---
Subjective Remarks Mr Pickens reports definite improvement overall. He was actively hallucinating and is not anymore. He is only a little tremulous. He is hungry and reports a diminishment of his abdominal pain. He is still recovering but is moving towards his baseline. Objective Vitals Vital Signs Date Time Temp Pulse Resp B/P Pulse Ox O2 Delivery O2 Flow Rate FiO2 07/09/16 07:00 97.6 92 18 134/100 95 07/09/16 04:00 97.3 82 18 130/86 95 07/08/16 20:42 18 07/08/16 20:00 97.3 90 20 132/80 95 07/08/16 19:25 98.2 81 20 135/75 97 07/08/16 17:42 135/80 I/O 07/08/16 07/08/16 07/08/16 07/09/16 07/09/16 07/09/16 07:00 15:00 23:00 07:00 15:00 23:00 Intake Total 240 ml 1011 ml 240 ml Output Total 600 ml 950 ml Balance -360 ml 1011 ml -710 ml Intake Oral 240 ml 240 ml IV Total 1011 ml Output Urine Total 600 ml 950 ml # Bowel Movements 0 0 Result Diagram: 07/08/16 0415 07/09/16 0344 Objective Remarks GENERAL: Patient is a well-nourished male lying in bed. He is slightly tremulous. He ate some breakfast. SKIN: Warm and dry. Multiple tattoos on the back and upper extremities HEAD: Atraumatic. Normocephalic. EYES: Pupils equal and round. No scleral icterus. No injection or drainage. ENT: No nasal bleeding or discharge. Mucous membranes pink and moist. NECK: Trachea midline. No JVD. CARDIOVASCULAR: Regular rate and rhythm, tachycardic without murmurs RESPIRATORY: No accessory muscle use. Clear to auscultation. Breath sounds equal bilaterally. GASTROINTESTINAL: Abdomen soft, tender to palpation in epigastric area, nondistended. Hepatic and splenic margins not palpable. MUSCULOSKELETAL: Extremities without clubbing, cyanosis, or edema. No obvious deformities. NEUROLOGICAL: Awake and alert. No obvious cranial nerve deficits. Motor grossly within normal limits. Grossly normal strength. Normal speech. PSYCHIATRIC: Appropriate mood and affect; insight and judgment normal. no auditory and visual hallucinations today. Urinary Catheter: No Vascular Central Line Catheter: No A/P Assessment and Plan This a 35-year-old male with past medical history significant for pancreatitis and alcohol abuse, admitted for alcohol withdrawal and pancreatitis. He has serious withdrawal sxs so he has needed to stay in the hospital for days , but is showing some improvement today. He plans on going to a sober house at discharge so he will not be tempted to go back to drinking alcohol. Discharge Planning Unclear. Likely require full detox from alcohol, possibly to take up to a week. Problem List: (1) Alcohol withdrawal syndrome Status: Acute Plan: Continue management as below. Hospital Course: Patient reports relapse of his alcoholism. He has been drinking for the last 2 weeks gallon a day of vodka. Has been having worsening abdominal pain during this last 2 days which is greatly decreased his alcohol intake. He reports that he has had delirium tremens in the past and he is going into that once more. * Admitted to observation on 07/06, changed to inpatient 07/08 * [facility] protocol * Librium taper. With his size plus the gallon a day, he was started on 50 mg TID of librium, taper to 50 mg BID X one day, 25 mg BID x 2 days, then 25 mg daily. May change as needed * Rally pack IV * he is doing well now with fluid intake * CBC, BMP monitoring (2) Acute pancreatitis Status: Acute Plan: Abdominal pain has significantly improved. diet started eating regular diet today. Once tolerating solids emphasize low-fat, high protein, nutrient dense with foods, vegetables, whole grains, low-fat dairy, etc. Hospital course: Patient was having severe abdominal pain on admission. Lipase was elevated at 440, and this has resolved to normal range. History of pancreatitis. Has had a relapse of his alcohol abuse, and cause of abdominal pain is due to pancreatitis. * Nothing by mouth initially, advanced diet. informed pt that if his pain worsened that he would need to step back to fluids only * Ultrasound of the pancreas ordered: showing some evidence of pancreatitis but no gallstones * Zofran 4 mg IV every 6 hours when necessary nausea or vomiting * Protonix 40 mg IV daily * Dilaudid 1 mg IV every 3 hours, now that he is taking po can give po pain meds (3) Nutrition, metabolism, and development symptoms Status: Acute Plan: Fluids: tolerating PO Electrolytes: monitor and replete as needed Nutrition: low fat, high protein, whole grain rich diet DVT Prophylaxis: Lovenox 40mg subQ q24hr GI Prophylaxis: Not indicated Neuro checks every 4hr OOB with assistance Seizure precautions Problem Qualifiers (1) Alcohol withdrawal syndrome: Qualified Code: F10.232 - Alcohol withdrawal syndrome, with perceptual disturbance (2) Acute pancreatitis: Qualified Code: K85.20 - Alcohol-induced acute pancreatitis without infection or necrosis Katrin Torres MD July 09, 2016 10:40
[2016-07-09 11:44] VITALS: O2SAT 95
[2016-07-09 12:02] VITALS: BP 137/73; PULSE 87; RESP 14; TEMP 96.9; O2SAT 97
[2016-07-09] MEDS: ACETAMINOPHEN/HYDROcodone 325 MG/10 MG TAB PO PRN ×2 (12:05→19:44)
[2016-07-09] MEDS: LORazepam 1 MG TAB PO PRN (13:15)
[2016-07-09] MEDS: HYDROmorphone HCL PF 1 MG/ML VIAL IV PUSH PRN ×2 (13:15→20:46)
[2016-07-09] MEDS: ENOXAPARIN SODIUM 40 MG/0.4 ML SYRINGE SQ SCH (13:26)
[2016-07-09 16:00] VITALS: BP 139/75; PULSE 94; RESP 18; TEMP 98.1; O2SAT 95
[2016-07-09] MEDS: MULTIVITAMIN INJ 10 ML, FOLIC ACID INJ 1 MG in SODIUM CHLORID 0.9% 500 ML INJ 500 ML IV SCH (16:00)
[2016-07-09 20:00] VITALS: BP 136/92; PULSE 82; RESP 18; TEMP 98.1; O2SAT 95
[2016-07-10] VITALS: BP 140/92; PULSE 85; RESP 18; TEMP 97.6; O2SAT 95
[2016-07-10] MEDS: ACETAMINOPHEN/HYDROcodone 325 MG/10 MG TAB PO PRN ×5 (00:04→19:09)
[2016-07-10] MEDS: SODIUM CHLOR 0.9% 1000 ML INJ 1,000 ML IV SCH ×3 (00:05→14:26)
[2016-07-10] MEDS: HYDROmorphone HCL PF 1 MG/ML VIAL IV PUSH PRN ×4 (00:52→17:19)
[2016-07-10] MEDS: LORazepam 2 MG TAB PO PRN ×3 (00:56→11:03)
[2016-07-10 05:10] LABS: HEMATOCRIT 43.8 % (39.0-51.0); PLATELET COUNT 166 TH/MM3 (150-450); RED BLOOD COUNT 5.27 MIL/MM3 (4.50-5.90); REVIEW FLAG FINAL; WHITE BLOOD COUNT 6.7 TH/MM3 (4.0-11.0)
[2016-07-10 05:29] LABS: BICARBONATE 25.1 MEQ/L (21.0-32.0); POTASSIUM 3.9 MEQ/L (3.5-5.1)
[2016-07-10 08:00] VITALS: BP 141/96; PULSE 79; RESP 16; TEMP 97.6; O2SAT 94
[2016-07-10] MEDS: PANTOPRAZOLE SODIUM 40 MG VIAL IV PUSH SCH (08:34)
--- NOTE | 2016-07-10 08:38 | HHI.FPPN ---
Subjective Remarks Patient seen and examined this morning. Afebrile vital signs stable. Tremors have improved. Still slight tremoring of the hands. Patient is about to eat breakfast that he is tolerating his food without nausea or vomiting. Reports that the abdominal pain has improved however worsens some with eating. He wishes to stay another day as today he will work on finding a alcohol rehabilitation center that will take him. Endorses: Abdominal pain, slight tremoring Denies: Fever, chills, nausea, vomiting, shortness of breath, chest pain, headache, calf pain (Sam Coates MD R2) Objective Vitals Vital Signs Date Time Temp Pulse Resp B/P Pulse Ox O2 Delivery O2 Flow Rate FiO2 07/10/16 00:00 97.6 85 18 140/92 95 07/09/16 20:00 98.1 82 18 136/92 95 07/09/16 16:00 98.1 94 18 139/75 95 07/09/16 12:02 96.9 87 14 137/73 97 07/09/16 11:44 95 21 I/O 07/09/16 07/09/16 07/09/16 07/10/16 07/10/16 07/10/16 07:00 15:00 23:00 07:00 15:00 23:00 Intake Total 1011 ml 840 ml 790 ml 1610 ml Output Total 1750 ml 1450 ml 1300 ml Balance 1011 ml -910 ml -660 ml 310 ml Intake Oral 840 ml 240 ml 240 ml IV Total 1011 ml 550 ml 1370 ml Output Urine Total 1750 ml 1450 ml 1300 ml # Bowel Movements 0 0 (Sam Coates MD R2) Result Diagram: 07/10/16 0426 07/10/16 0426 Imaging Last Impressions Pancreas Ultrasound 07/06/16 0000 Signed Impressions: Service Date/Time: July 18:44 - CONCLUSION: 1. Fat infiltration of the liver. 2. The pancreas there is ill-defined. This can be seen with pancreatitis although is nonspecific. Pasha Daniel MD Abdomen X-Ray 07/06/16 0000 Signed Impressions: Service Date/Time: July 15:02 - CONCLUSION: 1. No free air identified. Benign-appearing KUB. Sky Carlson MD Objective Remarks GENERAL: Patient is a well-nourished male lying in bed. He is slightly tremulous. Eating breakfast SKIN: Warm and dry. Multiple tattoos on the back and upper extremities HEAD: Atraumatic. Normocephalic. EYES: Pupils equal and round. No scleral icterus. No injection or drainage. ENT: No nasal bleeding or discharge. Mucous membranes pink and moist. NECK: Trachea midline. No JVD. CARDIOVASCULAR: Regular rate and rhythm, tachycardic without murmurs RESPIRATORY: No accessory muscle use. Clear to auscultation. Breath sounds equal bilaterally. GASTROINTESTINAL: Abdomen soft, tender to palpation in epigastric area, nondistended. Hepatic and splenic margins not palpable. MUSCULOSKELETAL: Extremities without clubbing, cyanosis, or edema. No obvious deformities. NEUROLOGICAL: Awake and alert. No obvious cranial nerve deficits. Motor grossly within normal limits. Grossly normal strength. Normal speech. PSYCHIATRIC: Appropriate mood and affect; insight and judgment normal. no auditory and visual hallucinations today. (Sam Coates MD R2) A/P Assessment and Plan This a 35-year-old male with past medical history significant for pancreatitis and alcohol abuse, admitted for alcohol withdrawal and pancreatitis. He has serious withdrawal sxs so he has needed to stay in the hospital for days , but is showing some improvement today. He plans on going to a sober house at discharge so he will not be tempted to go back to drinking alcohol. Discharge Planning Unclear. Likely require full detox from alcohol, possibly to take up to a week. (Sam Coates MD R2) Attending Attestation Patient seen and examined. Case reviewed and discussed with the resident team. Agree with plan of care as discussed with me and documented in the resident note. (Katrin Torres MD) Problem List: (1) Alcohol withdrawal syndrome Status: Acute Plan: Continue management as below. Hospital Course: Patient reports relapse of his alcoholism. He has been drinking for the last 2 weeks gallon a day of vodka. Has been having worsening abdominal pain during this last 2 days which is greatly decreased his alcohol intake. He reports that he has had delirium tremens in the past and he is going into that once more. * Admitted to observation on 07/06, changed to inpatient 07/08 * [facility] protocol * Librium taper. With his size plus the gallon a day, he was started on 50 mg TID of librium, taper to 50 mg BID X one day, 25 mg BID x 2 days, then 25 mg daily. May change as needed * Rally pack po * Improved fluid intake * CBC, BMP monitoring (2) Acute pancreatitis Status: Acute Plan: Abdominal pain has significantly improved. diet started eating regular diet today. Once tolerating solids emphasize low-fat, high protein, nutrient dense with foods, vegetables, whole grains, low-fat dairy, etc. Hospital course: Patient was having severe abdominal pain on admission. Lipase was elevated at 440, and this has resolved to normal range. History of pancreatitis. Has had a relapse of his alcohol abuse, and cause of abdominal pain is due to pancreatitis. * Nothing by mouth initially, advanced diet. informed pt that if his pain worsened that he would need to step back to fluids only * Ultrasound of the pancreas ordered: showing some evidence of pancreatitis but no gallstones * Zofran 4 mg IV every 6 hours when necessary nausea or vomiting * Protonix 40 mg IV daily * [place] per pain scale, Dilaudid as breakthrough pain (3) Nutrition, metabolism, and development symptoms Status: Acute Plan: Fluids: tolerating PO Electrolytes: monitor and replete as needed Nutrition: low fat, high protein, whole grain rich diet DVT Prophylaxis: Lovenox 40mg subQ q24hr GI Prophylaxis: Not indicated Neuro checks every 4hr OOB with assistance Seizure precautions (Sam Coates MD R2) Problem Qualifiers (1) Alcohol withdrawal syndrome: Qualified Code: F10.232 - Alcohol withdrawal syndrome, with perceptual disturbance (2) Acute pancreatitis: Qualified Code: K85.20 - Alcohol-induced acute pancreatitis without infection or necrosis Sam Coates MD R2 July 10, 2016 08:38 Katrin Torres MD July 11, 2016 13:26
[2016-07-10] MEDS: SODIUM CHLORIDE 0.9% FLUSH 10 ML FLUSH IV FLUSH SCH ×2 (08:43→20:11)
[2016-07-10] MEDS ORDERED: chlordiazePOXIDE 25 MG CAP PO SCH (09:00)
[2016-07-10 12:00] VITALS: BP 129/75; PULSE 93; RESP 20; TEMP 95.6; O2SAT 94
[2016-07-10] MEDS: SODIUM CHLORIDE 0.9% FLUSH 10 ML FLUSH IV FLUSH PRN ×2 (12:50→17:20)
[2016-07-10] MEDS: ENOXAPARIN SODIUM 40 MG/0.4 ML SYRINGE SQ SCH (14:31)
[2016-07-10] MEDS: LORazepam 1 MG TAB PO PRN ×2 (15:05→19:09)
[2016-07-10 16:00] VITALS: BP 138/66; PULSE 85; RESP 18; TEMP 98.3; O2SAT 96
[2016-07-10] MEDS: MULTIVITAMIN INJ 10 ML, FOLIC ACID INJ 1 MG in SODIUM CHLORID 0.9% 500 ML INJ 500 ML IV SCH (17:27)
[2016-07-10 17:50] VITALS: RESP 16
--- NOTE | 2016-07-11 10:16 | PD.AMA ---
Against Medical Advice Note Discharge Disposition: Against Medical Advice AMA Statement Patient Antonio Pickens has decided to leave the hospital against medical advice on July 10, 2016. This patient had the capacity to refuse care and understands the risks of leaving, including permanent disability and/or , and has had an opportunity to ask questions about his condition. The patient has been informed that he may return for care at any time, and follow up has been arranged/advised. Chen Celis MD R1 July 11, 2016 10:15
--- NOTE | 2016-07-11 10:17 | HHI.DS ---
Discharge Summary Admission Date July 08, 2016 at 10:53 Discharge Date: July 10, 2016 Admitting Diagnosis acute pancreatitis. Alcohol intoxication. (1) Alcohol withdrawal syndrome Diagnosis: Principal Plan: Hospital Course: Patient reports relapse of his alcoholism. He has been drinking for the last 2 weeks gallon a day of vodka. Has been having worsening abdominal pain during this last 2 days which is greatly decreased his alcohol intake. He reports that he has had delirium tremens in the past and he is going into that once more. * Admitted to observation on 07/06, changed to inpatient 07/08 * [facility] protocol * Librium taper. With his size plus the gallon a day, he was started on 50 mg TID of librium, taper to 50 mg BID X one day, 25 mg BID x 2 days, then 25 mg daily. May change as needed * Rally pack po * Improved fluid intake * CBC, BMP monitoring (2) Acute pancreatitis Diagnosis: Principal Plan: Abdominal pain has significantly improved. Regular diet was initiated on 07/10. Emphasize low-fat, high protein, nutrient dense with foods, vegetables, whole grains, low-fat dairy, etc. Hospital course: Patient was having severe abdominal pain on admission. Lipase was elevated at 440, and this has resolved to normal range. History of pancreatitis. Has had a relapse of his alcohol abuse, and cause of abdominal pain is due to pancreatitis. * Nothing by mouth initially, advanced diet. informed pt that if his pain worsened that he would need to step back to fluids only * Ultrasound of the pancreas ordered: showing some evidence of pancreatitis but no gallstones * Zofran 4 mg IV every 6 hours when necessary nausea or vomiting * Protonix 40 mg IV daily * [place] per pain scale, Dilaudid as breakthrough pain (3) Nutrition, metabolism, and development symptoms Diagnosis: Secondary Plan: Fluids: tolerating PO Electrolytes: monitor and replete as needed Nutrition: low fat, high protein, whole grain rich diet DVT Prophylaxis: Lovenox 40mg subQ q24hr GI Prophylaxis: Not indicated Neuro checks every 4hr OOB with assistance Seizure precautions Consultants None Brief History Mr Pickens is a 35-year-old male with past medical history significant for alcohol abuse and pancreatitis. He had recently been sober for a few months when 2 weeks ago his girlfriend left him and he started to binge drink once more. He has been drinking about a gallon of vodka every day for the last 2 weeks. For the last 2 days before admission his stomach has been hurting and he has been drinking to the point of throwing up in order to help himself feel better. His parents saw him shaking and were worried about him and called the ambulance. Prior to getting on the ambulance he had 2 or 3 more shots of vodka as well as a Valium to help with this shaking. He was currently complaining of severe abdominal pain and could not sit still in the bed. He felt like a sharp stabbing pain in the center of the stomach and like somebody was punching him in the back repetitively. Last time he vomited was yesterday morning. Last episode of pancreatitis occurred about 6 months ago prior to his sobriety, he has been going to and had been sober for several months prior to this relapse. This am he reports having visual hallucinations where he is seeing "shadow people"among other things. He is tremulous. He has a history of seizures with alcohol withdrawal and states it often takes him days to improve. After leaving the hospital he wants to go to a "sober house" and quit drinking. His abdominal pain is improved though still present. CBC/BMP: 07/10/16 0426 07/10/16 0426 Significant Findings Laboratory Tests Test 07/09/16 07/10/16 03:44 04:26 Estimat Glomerular Filtration 80 ML/MIN (>89) 77 ML/MIN (>89) Rate Chloride Level 109 MEQ/L (98-107) Imaging Last Impressions Pancreas Ultrasound 07/06/16 0000 Signed Impressions: Service Date/Time: July 18:44 - CONCLUSION: 1. Fat infiltration of the liver. 2. The pancreas there is ill-defined. This can be seen with pancreatitis although is nonspecific. Pasha Daniel MD Abdomen X-Ray 07/06/16 0000 Signed Impressions: Service Date/Time: July 15:02 - CONCLUSION: 1. No free air identified. Benign-appearing KUB. Sky Carlson MD PE at Discharge GENERAL: Patient is a well-nourished male lying in bed. He is slightly tremulous. Eating breakfast SKIN: Warm and dry. Multiple tattoos on the back and upper extremities HEAD: Atraumatic. Normocephalic. EYES: Pupils equal and round. No scleral icterus. No injection or drainage. ENT: No nasal bleeding or discharge. Mucous membranes pink and moist. NECK: Trachea midline. No JVD. CARDIOVASCULAR: Regular rate and rhythm, tachycardic without murmurs RESPIRATORY: No accessory muscle use. Clear to auscultation. Breath sounds equal bilaterally. GASTROINTESTINAL: Abdomen soft, tender to palpation in epigastric area, nondistended. Hepatic and splenic margins not palpable. MUSCULOSKELETAL: Extremities without clubbing, cyanosis, or edema. No obvious deformities. NEUROLOGICAL: Awake and alert. No obvious cranial nerve deficits. Motor grossly within normal limits. Grossly normal strength. Normal speech. PSYCHIATRIC: Appropriate mood and affect; insight and judgment normal. no auditory and visual hallucinations today. Hospital Course Patient has a history of alcoholism, was admitted for acute mild pancreatitis and alcohol withdrawal symptoms. He was admitted on 07/06 as an office patient, and was transitioned to admission status on 07/08. For his pancreatitis, he was managed with aggressive IV fluids and pain medication as needed. He was managed with [facility] protocol for alcohol withdrawal, and this was progressed to a Librium taper starting on day 2 of stay. This was initiated at 50 mg 3 times daily on days 2 of stay, titrated down to patient receiving a 25 mg dose on the day of discharge. He stated that he was planning to go to an inpatient rehabilitation facility for supervised alcohol withdrawal upon discharge which patient was setting up himself. He was evaluated on the morning of 07/10, stating that he wanted to stay another day given his persistent symptoms. However, at 10 PM he was discharged AMA given that he needed to get back home. He understood the risks and benefits of staying at that time and made the decision to leave. He is discharged without medications but told that he may return to the hospital at any time for new or persistent symptoms. Pt Condition on Discharge: Stable Chen Celis MD R1 July 11, 2016 10:17
== END 2016-07-10 22:27 | disposition left against medical advice (07) | DRG 439 ==
LOC: NEPE 12:00 → NEDA 14:11 → NEPGCP 17:55 → OBSVTOIN 07-08 10:53 → N07B 07-08 22:10
PROVIDERS: ADMIT Family Medicine; ATTEND Family Medicine
PROC: HZ2ZZZZ Detoxification Services for Substance Abuse Treatment (ICD-10-PCS; principal; 2016-07-06)
DX: K85.20 Alcohol induced acute pancreatitis without necrosis or infection (principal); F10.232 Alcohol dependence with withdrawal with perceptual disturbance; F10.229 Alcohol dependence with intoxication, unspecified; Y90.8 Blood alcohol level of 240 mg/100 ml or more
CPT/HCPCS: 74020; 76705; 76937; 80048; 80053; 80307; 81001; 82607; 82948; 83690; 83735; 84100; 85025; 85027; 85610; 85730; 96365; 96375; C9113; G0378; J1170; J1644; J1650; J2060; J2270; J2405; J3411; J7030; J7040

== ENCOUNTER 2016-07-31 20:58 | Emergency (ER) | payer SELFPAY ==
[~2016-07-31] VITALS: Ht 177.8 cm; Wt 115.0 kg
[2016-07-31 21:04] VITALS: BP 157/79; PULSE 117; RESP 18; TEMP 98.2; O2SAT 96
[2016-07-31] MEDS ORDERED: CITA10TA4 PO (21:07)
[2016-07-31] MEDS ORDERED: TRAZ50TA12 PO (21:07)
--- NOTE | 2016-07-31 21:14 | PD ---
HPI Chief Complaint: Abdominal Pain Time Seen by Provider: 21:02 Travel History International Travel<30 days: No Contact w/Intl Traveler<30days: No Traveled to known affect area: No History of Present Illness HPI This is a local alcoholic who is been binging for the last 2 weeks. He complains of vomiting and epigastric pain. He admits to drinking heavily today. No alleviating factors. Symptoms severity is moderate. Denies fever. Duration of vomiting and pain is 2 days. He's had an appendectomy. Denies drug use or intentional overdose. PFSH Past Medical History Blood Disorders: No Anxiety: Yes Depression: Yes Cancer: No Cardiovascular Problems: Yes Chest Pain: No Diminished Hearing: No Endocrine: No Gastrointestinal Disorders: Yes (appendicitis per patient pancreatitis per patient ) Genitourinary: No Hypertension: Yes Immune Disorder: No Implanted Vascular Access Dvce: Yes Musculoskeletal: No Neurologic: No Psychiatric: Yes Reproductive: No Respiratory: No Immunizations Current: No Pancreatitis: Yes Seizures: Yes (alcohol withdrawl) Tetanus Vaccination: < 5 Years Influenza Vaccination: No Past Surgical History Appendectomy: Yes Joint Replacement: Yes (left knee) Other Surgery: Yes Social History Alcohol Use: Yes (DAILY) Tobacco Use: No Substance Use: No (DENIES) Allergies-Medications (Allergen,Severity, Reaction): Coded Allergies: No Known Allergies (Unverified , 11/29/15) Reported Meds & Prescriptions Reported Meds & Active Scripts Active Reported Trazodone (Trazodone HCl) 50 Mg Tab 100 Mg PO HS Citalopram (Citalopram Hydrobromide) 10 Mg Tab Unknown Dose PO DAILY Review of Systems General / Constitutional: No: Fever Eyes: No: Visual changes HENT: No: Headaches Cardiovascular: No: Chest Pain or Discomfort Respiratory: No: Shortness of Breath Gastrointestinal: Positive: Nausea, Vomiting, Abdominal Pain Genitourinary: No: Dysuria Musculoskeletal: No: Pain Skin: No Rash Neurologic: No: Weakness Psychiatric: Positive: Substance Abuse, No: Depression Endocrine: No: Polydipsia Hematologic/Lymphatic: No: Easy Bruising Physical Exam Narrative GENERAL: Disheveled well-developed patient with nausea and abdominal pain. SKIN: Focused skin assessment reveals no rash and nodules. Skin is Warm and dry. HEAD: Atraumatic. Normocephalic. EYES: Pupils equal and round. No scleral icterus. No injection or drainage. ENT: No nasal bleeding or discharge. Mucous membranes pink and moist. NECK: Trachea midline. No JVD. CARDIOVASCULAR: Regular rate and rhythm. No murmur appreciated. RESPIRATORY: No accessory muscle use. Clear to auscultation. Breath sounds equal bilaterally. GASTROINTESTINAL: Abdomen soft, mild epigastric tenderness without rebound or guarding, nondistended. Hepatic and splenic margins not palpable. MUSCULOSKELETAL: No obvious deformities. No clubbing. No cyanosis. No edema. NEUROLOGICAL: Awake and alert. No obvious cranial nerve deficits. Motor grossly within normal limits. Normal speech. PSYCHIATRIC: Appropriate mood and affect; insight and judgment poor Data Data Last Documented VS Vital Signs Date Time Temp Pulse Resp B/P Pulse Ox O2 Delivery O2 Flow Rate FiO2 07/31/16 23:35 110 20 158/71 98 Room Air 07/31/16 21:04 98.2 Orders Complete Blood Count With Diff (07/31/16 21:06) Comprehensive Metabolic Panel (07/31/16 21:06) Lipase (07/31/16 21:06) Prothrombin Time / Inr (Pt) (07/31/16 21:06) Act Partial Throm Time (Ptt) (07/31/16 21:06) Iv Access Insert/Monitor (07/31/16 21:06) Ecg Monitoring (07/31/16 21:06) NPO (07/31/16 21:06) Ondansetron Inj (Zofran Inj) (07/31/16 21:15) Sodium Chloride 0.9% Flush (Ns Flush) (07/31/16 21:15) Sodium Chlor 0.9% 1000 Ml Inj (Ns 1000 M (07/31/16 21:15) Ondansetron Inj (Zofran Inj) (07/31/16 22:15) Morphine Inj (Morphine Inj) (07/31/16 22:15) Alcohol (Ethanol) (07/31/16 22:08) Prochlorperazine Inj (Compazine Inj) (07/31/16 23:00) Chlordiazepoxide (Librium) (07/31/16 23:00) Labs Laboratory Tests Test 07/31/16 21:14 White Blood Count 11.1 TH/MM3 Red Blood Count 5.91 MIL/MM3 Hemoglobin 16.2 GM/DL Hematocrit 49.0 % Mean Corpuscular Volume 82.8 FL Mean Corpuscular Hemoglobin 27.4 PG Mean Corpuscular Hemoglobin 33.0 % Concent Red Cell Distribution Width 14.4 % Platelet Count 232 TH/MM3 Mean Platelet Volume 8.4 FL Neutrophils (%) (Auto) 66.6 % Lymphocytes (%) (Auto) 29.2 % Monocytes (%) (Auto) 3.6 % Eosinophils (%) (Auto) 0.0 % Basophils (%) (Auto) 0.6 % Neutrophils # (Auto) 7.4 TH/MM3 Lymphocytes # (Auto) 3.3 TH/MM3 Monocytes # (Auto) 0.4 TH/MM3 Eosinophils # (Auto) 0.0 TH/MM3 Basophils # (Auto) 0.1 TH/MM3 CBC Comment DIFF FINAL Differential Comment Prothrombin Time 10.6 SEC Prothromb Time International 1.0 RATIO Ratio Activated Partial 24.2 SEC Thromboplast Time Sodium Level 139 MEQ/L Potassium Level 3.9 MEQ/L Chloride Level 97 MEQ/L Carbon Dioxide Level 21.1 MEQ/L Anion Gap 21 MEQ/L Blood Urea Nitrogen 14 MG/DL Creatinine 1.15 MG/DL Estimat Glomerular Filtration 73 ML/MIN Rate Random Glucose 111 MG/DL Calcium Level 8.7 MG/DL Total Bilirubin 0.6 MG/DL Aspartate Amino Transf 92 U/L (AST/SGOT) Alanine Aminotransferase 139 U/L (ALT/SGPT) Alkaline Phosphatase 77 U/L Total Protein 7.9 GM/DL Albumin 4.3 GM/DL Lipase 426 U/L Ethyl Alcohol Level 135 MG/DL MDM Medical Decision Making Medical Screen Exam Complete: Yes Emergency Medical Condition: Yes Medical Record Reviewed: Yes Differential Diagnosis Differential diagnosis includes pancreatitis, biliary colic, hepatitis, GERD, peptic ulcer disease. Narrative Course I have reviewed the patient's electronic medical record. Patient was admitted July 08, 2016 for pancreatitis with a lipase of only 440 IV placed I gave him IV Zofran and 1 L normal saline IV CBC reasonably normal Metabolic profile shows normal sodium and potassium Lipase is 400 LFTs minor elevation of LFTs Alcohol level is 135 I gave him 1 dose of morphine and additional Zofran 1 dose of Compazine and 1 dose of Librium Stable for outpatient follow-up Not having acute withdrawal but instead is acutely intoxicated Wrote him some Librium in case withdrawal symptoms do occur. He claims that he is going to alcohol rehabilitation tomorrow A few Zofran and tramadol prescribed Diagnosis Primary Impression: Alcohol intoxication Qualified Code: F10.920 - Alcohol intoxication, uncomplicated Additional Impression: Acute epigastric pain Additional Instructions: The patient was advised to follow up with their physician and return if they worsen. The patient was warned about potential sedation for the medications they will receive on prescription. Take Prilosec daily which is [id number] Med/Other Pt SpecificInfo: Prescription(s) given Scripts Ondansetron (Zofran)4 Mg Tab4 Mg PO Q6HR PRN (NAUSEA OR VOMITING) #15 TAB Ref 0 Prov:Keshav Paul MD 07/31/16 Tramadol 50 Mg Tab50 Mg PO Q6H PRN (PAIN) #15 TAB Ref 0 Prov:Keshav Paul MD 07/31/16 Disposition: 01 DISCHARGE HOME Condition: Stable Keshav Paul MD July 31, 2016 21:14
[2016-07-31] MEDS ORDERED: SODIUM CHLOR 0.9% 1000 ML INJ 1,000 ML IV ONE (21:15)
[2016-07-31] MEDS ORDERED: SODIUM CHLORIDE 0.9% FLUSH 10 ML FLUSH IV FLUSH PRN (21:15)
[2016-07-31] MEDS ORDERED: ONDANSETRON HCL 4 MG/2 ML VIAL IVP ONE (21:15)
[2016-07-31 21:27] LABS: AUTOMATED NEUTROPHIL # 7.4 TH/MM3 (1.8-7.7); BASOPHIL # 0.1 TH/MM3 (0-0.2); BASOPHIL % 0.6 % (0.0-2.0); HEMO FLAGS DIFF FINAL; LYMPH % 29.2 % (9.0-44.0); LYMPHOCYTE # 3.3 TH/MM3 (1.0-4.8); MEAN CELL VOLUME 82.8 FL (80.0-100.0); MEAN CORPUSCULAR HEMOGLOBIN 27.4 PG (27.0-34.0); MONO % 3.6 % (0.0-8.0); NEUT % 66.6 % (16.0-70.0); PLATELET COUNT 232 TH/MM3 (150-450); RED BLOOD COUNT 5.91 MIL/MM3 (4.50-5.90); RED CELL DISTRIBUTION WIDTH 14.4 % (11.6-17.2); WHITE BLOOD COUNT 11.1 TH/MM3 (4.0-11.0)
[2016-07-31 21:43] LABS: APTT (PATIENT) 24.2 SEC (24.3-30.1); PROTHROMBIN TIME - PATIENT 10.6 SEC (9.8-11.6)
[2016-07-31 21:52] LABS: ANION GAP 21 MEQ/L (5-15); AST (GOT) 92 U/L (15-37); BICARBONATE 21.1 MEQ/L (21.0-32.0); BLOOD UREA NITROGEN 14 MG/DL (7-18); CHLORIDE 97 MEQ/L (98-107); GLOMERULAR FILTRATION RATE 73 ML/MIN (>89); POTASSIUM 3.9 MEQ/L (3.5-5.1); SODIUM (NA) 139 MEQ/L (136-145)
[2016-07-31 21:59] LABS: ALKALINE PHOSPHATASE 77 U/L (45-117); ALT (GPT) 139 U/L (12-78); TOTAL BILIRUBIN ADULT 0.6 MG/DL (0.2-1.0)
[2016-07-31] MEDS ORDERED: MORPHINE SULFATE 4 MG/ML INJ IV PUSH ONE (22:15)
[2016-07-31] MEDS ORDERED: ONDANSETRON HCL 4 MG/2 ML VIAL IV ONE (22:15)
[2016-07-31 22:17] VITALS: BP 158/87; PULSE 105; RESP 18; O2SAT 98
[2016-07-31] MEDS ORDERED: PROCHLORPERAZINE INJ 10 MG/2 ML VIAL IV PUSH ONE (23:00)
[2016-07-31] MEDS ORDERED: chlordiazePOXIDE 25 MG CAP PO ONE (23:00)
[2016-07-31 23:35] VITALS: BP 158/71; PULSE 110; RESP 20; O2SAT 98
[2016-07-31] MEDS ORDERED: TRAM50TA PO (23:47)
[2016-07-31] MEDS ORDERED: ZOFR4TAB PO (23:47)
== END 2016-08-01 00:05 | disposition home or self-care (01) ==
LOC: NEPE 20:58
DX: F10.120 Alcohol abuse with intoxication, uncomplicated (principal); R10.13 Epigastric pain; I10 Essential (primary) hypertension
CPT/HCPCS: 80053; 80307; 83690; 85025; 85610; 85730; 96361; 96374; 96375; 99284; J0780; J2270; J2405; J7030